=== PATIENT | female | born 2000 | race Hispanic/Latino ===

== ENCOUNTER → 2022-08-07 | Outpatient (CLI) | payer OTHER | LOC: RAD 13:59 | PROVIDERS: ATTEND Internal Medicine | DX: J32.9 Chronic sinusitis, unspecified (principal) | CPT/HCPCS: 70220 ==

== ENCOUNTER 2023-02-18 14:55 | Emergency (ER) | payer OTHER ==
[~2023-02-18] VITALS: Ht 162.6 cm; Wt 72.6 kg
[2023-02-18 15:30] VITALS: O2SAT 99
== END 2023-02-18 15:47 | disposition home or self-care (01) ==
LOC: ER 15:38
DX: S60.352A Superficial foreign body of left thumb, initial encounter (principal); W25.XXXA Contact with sharp glass, initial encounter; Y92.89 Other specified places as the place of occurrence of the external cause; D57.3 Sickle-cell trait
CPT/HCPCS: 99283